=== PATIENT | female | born 1985 | race Two or more races ===

== ENCOUNTER 2022-07-12 23:49 | Emergency (ER) | payer OTHER ==
[~2022-07-12] VITALS: Ht 157.5 cm; Wt 65.8 kg
[~2022-07-12 23:49] MED LIST: DOLOGESIC CAPSU1 CAP PO; ORPH100T PO
[2022-07-13] MEDS ORDERED: INTESTINEX680 M1 PO (01:30)
[2022-07-13] MEDS ORDERED: DICLOFENAC POTA50 MG PO (01:30)
[2022-07-13] MEDS ORDERED: AMOX-CLAV 875-1 EACH PO (01:30)
== END 2022-07-13 01:37 | disposition home or self-care (01) ==
LOC: ER 23:49
DX: S99.821A Other specified injuries of right foot, initial encounter (principal); X58.XXXA Exposure to other specified factors, initial encounter; Y93.9 Activity, unspecified; Y92.9 Unspecified place or not applicable

== ENCOUNTER 2023-07-06 22:30 | Emergency (ER) | payer OTHER ==
[~2023-07-06] VITALS: Ht 266.7 cm; Wt 63.5 kg
[~2023-07-06 22:30] MED LIST changes: +AMOX-CLAV 875-1 EACH PO; +DICLOFENAC POTA50 MG PO; +INTESTINEX680 M1 PO; +TYLENOL 120MG120 MG
[2023-07-07] MEDS ORDERED: KETO10TA2 PO (05:01)
== END 2023-07-07 05:05 ==
LOC: ER 22:30
DX: R20.2 Paresthesia of skin (principal)

== ENCOUNTER 2024-09-19 17:31 | Emergency (ER) | payer OTHER ==
[~2024-09-19] VITALS: Ht 162.6 cm; Wt 67.6 kg
[~2024-09-19 17:31] MED LIST changes: +KETO10TA2 PO
[2024-09-19 18:00] VITALS: BP 102/61; O2SAT 95
[2024-09-19 19:37] LABS: HEMATOCRIT 37.9 % (36.0-45.00); HEMOGLOBIN 12.7 g/dL (12.0-15.00); MEAN CELL VOLUME 92.8 fL (80.00-100.00); MEAN CORPUSCULAR HEMOGLOBIN 31.1 pg (27.00-32.0); MEAN CORPUSCULAR HGB CONC 33.5 g/dl (32.0-36.0); PLATELET COUNT 390 K/uL (150-450); RED BLOOD COUNT 4.08 M/uL (4.00-6.00); RED CELL DISTRIBUTION WIDTH 13.4 % (11.5-14.5)
[2024-09-19 19:40] LABS: ALBUMIN 3.4 gm/dL (3.4-5.0); BILIRUBIN TOTAL 0.21 mg/dL (0.3-1.2); CALCIUM 8.4 mg/dL (8.5-10.1); CREATININE SERUM 0.73 mg/dL (0.55-1.02); GFR 87.85; GLOBULINA 3.9 G/DL (2.4-3.5); POTASSIUM 3.83 mEq/L (3.5-5.1); TOTAL PROTEIN 7.3 gm/dL (6.4-8.2)
[2024-09-19] MEDS ORDERED: METOCLOPRAMIDE HCL 5 MG/ML VIAL IM STA (19:56)
[2024-09-19] MEDS ORDERED: KETOROLAC TROMETHAMINE 30 MG VIAL IM STA (19:57)
[2024-09-19] MEDS ORDERED: INTESTINEX680 M1 PO (21:00)
[2024-09-19] MEDS ORDERED: METRONIDAZOLE500 MG PO (21:01)
[2024-09-19] MEDS ORDERED: ONDANSETRON ODT4 MG (21:02)
[2024-09-19] MEDS ORDERED: ZOFRAN8 MG PO (21:03)
== END 2024-09-19 21:43 | disposition home or self-care (01) ==
LOC: ER 17:33
DX: R19.7 Diarrhea, unspecified (principal); Z20.822 Contact with and (suspected) exposure to COVID-19
CPT/HCPCS: 36415; 71046; 96372; 99283; J1885; J2765

== ENCOUNTER 2024-09-21 12:58 | Inpatient (IN) | payer OTHER ==
[~2024-09-21] VITALS: Ht 162.6 cm; Wt 67.6 kg
[~2024-09-21 12:58] MED LIST changes: +METRONIDAZOLE500 MG PO; +ONDANSETRON ODT4 MG; +ZOFRAN8 MG PO
[2024-09-21] MEDS ORDERED: CIPROFLOXACIN500 MG PO (14:08)
[2024-09-21] MEDS ORDERED: FAMOTIDINE20 MG PO (14:09)
--- NOTE | 2024-09-21 14:09 | NUR ---
PTE REFIERE MUCHAS DIARREAS Y DOLOR ABDOMINAL DESDE HACE 6 PALACIOS Y CON TRATAMIENTO. SE LE MARU S/V Y SE ACOMODA EN RODO CON BARABDAS ELEVADA.
[2024-09-21] MEDS ORDERED: 0.9 % SODIUM CHLORIDE 1,000 ML IV ONE (15:15)
[2024-09-21] MEDS ORDERED: FAMOTIDINE/PF 20 MG/2 ML VIAL IV ONE (15:15)
[2024-09-21] MEDS ORDERED: ONDANSETRON HCL 2 MG/ML VIAL IV ONE (15:15)
[2024-09-21] MEDS ORDERED: LACTOBACILLUS ACIDOPHILUS 1 CAP CAP PO ONE (15:15)
[2024-09-21 16:03] LABS: HEMOGLOBIN 13.2 g/dL (12.0-15.00); MEAN CELL VOLUME 91.8 fL (80.00-100.00); MEAN CORPUSCULAR HEMOGLOBIN 31.1 pg (27.00-32.0); MEAN CORPUSCULAR HGB CONC 33.8 g/dl (32.0-36.0); PLATELET COUNT 469 K/uL (150-450); RED BLOOD COUNT 4.25 M/uL (4.00-6.00); RED CELL DISTRIBUTION WIDTH 13.6 % (11.5-14.5)
[2024-09-21 16:29] LABS: ALBUMIN 3.3 gm/dL (3.4-5.0); BILIRUBIN TOTAL 0.3 mg/dL (0.3-1.2); CALCIUM 8.7 mg/dL (8.5-10.1); CREATININE SERUM 0.86 mg/dL (0.55-1.02); GFR 72.71; GLOBULINA 3.9 G/DL (2.4-3.5); POTASSIUM 4.29 mEq/L (3.5-5.1); TOTAL PROTEIN 7.2 gm/dL (6.4-8.2)
[2024-09-21 16:36] LABS: URINE APPEARANCE Clear; URINE BILIRRUBIN Negative (NEGATIVE); URINE BLOOD Negative; URINE COLOR Yellow; URINE GLUCOSE Negative (NEGATIVE); URINE KETONE Negative (NEGATIVE); URINE LEUKOCYTE Negative; URINE NITRATE Negative; URINE PROTEIN Negative (NEGATIVE); URINE UROBILINOGEN 0.2 E.U./dl
[2024-09-21 16:42] LABS: URINE BACTERIA 85.6 uL (0.0-1933); URINE RBC 2.8 uL (0.0-20.8); URINE WBC 2.4 uL (0.0-23.2)
[2024-09-21 16:45] LABS: URINE CAST 0.15 uL (0.0-1.40)
[2024-09-21 16:47] LABS: FECAL LEUKOCYTES POSITIVE (NEGATIVE); ob POSITIVE (NEGATIVE)
[2024-09-21] MEDS ORDERED: PIPERACILLIN/TAZOBACTAM SODIUM 3.375 GM VIAL IV ONE (22:15)
[2024-09-21] MEDS ORDERED: ONDANSETRON HCL 4 MG in DEXTROSE 5 % IN WATER 50 ML IV PRN (22:30)
[2024-09-21] MEDS ORDERED: ENALAPRILAT DIHYDRATE 1.25 MG/ML VIAL IV PRN (22:30)
[2024-09-21] MEDS ORDERED: ACETAMINOPHEN 500 MG GEL..CAP PO PRN (22:30)
[2024-09-21] MEDS ORDERED: 0.9 % SODIUM CHLORIDE 1,000 ML IV SCH (22:30)
[2024-09-22] MEDS ORDERED: PIPERACILLIN/TAZOBACTAM SODIUM 3.375 GM in 0.9 % SODIUM CHLORIDE 100 ML IV SCH
[2024-09-22] MEDS ORDERED: HYOSCYAMINE SULFATE 0.125 MG TAB.SUBL SL SCH (01:00)
[2024-09-22 05:43] VITALS: BP 94/55; O2SAT 98
[2024-09-22] MEDS ORDERED: FAMOTIDINE/PF 20 MG in 0.9 % SODIUM CHLORIDE 8 ML IV PUSH SCH (09:00)
[2024-09-22] MEDS ORDERED: LACTOBACILLUS ACIDOPHILUS 1 CAP CAP PO SCH (09:00)
[2024-09-22 09:24] VITALS: BP 95/54
[2024-09-22 16:40] VITALS: BP 96/51
[2024-09-23 03:40] VITALS: BP 89/50; O2SAT 96
[2024-09-23 07:03] LABS: INR 0.97; PARTIAL THROMBOPLASTIN TIME 27.9 SECONDS (22.0-34.0); PROTHROMBIN TIME 10.6 SECONDS (9.0-11.5)
[2024-09-23 07:39] LABS: ALBUMIN 2.9 gm/dL (3.4-5.0); ALKALINE PHOSPHATASE 45 U/L (50-136); ALT/SGPT 53 U/L (12-78); ANION GAP 9 (10.0-20.0); AST/SGOT 33 U/L (15-37); BILIRUBIN TOTAL 0.23 mg/dL (0.3-1.2); BILIRUBIN,CONJUGATED < 0.10 mg/dL (0.0-0.2); BILIRUBIN,UNCONJUGATED 0.13 mg/dL (0.0-0.6); BLOOD UREA NITROGEN 6 mg/dL (7-18); BUN CREA RATIO 9 (7.0-25.0); CALCIUM 8.4 mg/dL (8.5-10.1); CARBON DIOXIDE 25 mEq/L (21-32); CHLORIDE 112 mmol/L (98-107); CHOL HDL RATIO 2.7 (0-5.0); CHOLESTEROL 136 mg/dL (0-200); GFR 92.21; GLOBULINA 2.8 G/DL (2.4-3.5); GLUCOSE FASTING 94 mg/dL (65-100); HDL 50 mg/dl (40-60); LDL 71 mg/dl (0-130); OSMOLALITY SERUM 280 MOSM/KG (275-295); POTASSIUM 4.32 mEq/L (3.5-5.1); SODIUM 142 mmol/L (136-145); TOTAL PROTEIN 5.7 gm/dL (6.4-8.2); TRIGLYCERIDES 76 mg/dL (0-150); VLDL 15 (0-39)
[2024-09-23 07:53] LABS: HEMATOCRIT 32.2 % (36.0-45.00); HEMOGLOBIN 11.3 g/dL (12.0-15.00); MEAN CELL VOLUME 90.2 fL (80.00-100.00); MEAN CORPUSCULAR HEMOGLOBIN 31.6 pg (27.00-32.0); PLATELET COUNT 434 K/uL (150-450); RED BLOOD COUNT 3.57 M/uL (4.00-6.00); RED CELL DISTRIBUTION WIDTH 13.9 % (11.5-14.5)
[2024-09-23 08:14] LABS: C-REACTIVE PROTEIN 1.16 MG/DL (0.00-0.29); LIPASE 112 U/L (13-75)
[2024-09-23 08:19] LABS: URINE APPEARANCE Clear; URINE BILIRRUBIN Negative (NEGATIVE); URINE BLOOD Negative; URINE COLOR Yellow; URINE GLUCOSE Negative (NEGATIVE); URINE KETONE Trace (NEGATIVE); URINE LEUKOCYTE Negative; URINE NITRATE Negative; URINE PROTEIN Negative (NEGATIVE); URINE UROBILINOGEN 0.2 E.U./dl
[2024-09-23 08:23] LABS: URINE BACTERIA 12.5 uL (0.0-1933); URINE EPITHELIAL CELLS 19.5 uL (0.0-38.8); URINE RBC 5.9 uL (0.0-20.8); URINE WBC 1.8 uL (0.0-23.2)
[2024-09-23 09:01] VITALS: BP 90/50
[2024-09-23 09:11] LABS: ERYTHROCYTE SEDIMENTATION RATE 30 mm/hr
[2024-09-23 09:59] LABS: URINE CAST 0.15 uL (0.0-1.40)
[2024-09-23 16:44] VITALS: BP 100/54
[2024-09-24 02:28] VITALS: BP 93/53; O2SAT 97
== END 2024-09-24 15:38 | disposition home or self-care (01) | DRG 392 ==
LOC: ER 13:00 → MEDI 22:50
PROVIDERS: General Practice; Nurse Practitioner Family; ADMIT Internal Medicine; ATTEND Internal Medicine
DX: R19.7 Diarrhea, unspecified (principal); K62.5 Hemorrhage of anus and rectum